=== PATIENT | female | born 1980 | race Two or more races ===

== ENCOUNTER 2017-11-16 07:59 | Outpatient (CLI) | payer BC ==
[2017-11-16] MEDS ORDERED: ISOVUE-370 76%-LOCM 1 ML ONE (12:51)
== END 2017-11-16 08:00 | disposition home or self-care (01) ==
LOC: BICCT 07:59
PROVIDERS: ATTEND Family Medicine
DX: R59.0 Localized enlarged lymph nodes (principal)
CPT/HCPCS: 71260

== ENCOUNTER 2021-06-05 09:50 | Outpatient (CLI) | payer BC | END 2021-06-05 09:51 | disposition home or self-care (01) | LOC: BICRAD 09:50 | PROVIDERS: ATTEND Family Medicine | DX: M50.122 Cervical disc disorder at C5-C6 level with radiculopathy (principal); R29.898 Other symptoms and signs involving the musculoskeletal system; M79.601 Pain in right arm | CPT/HCPCS: 72040 ==

== ENCOUNTER 2021-06-09 07:43 | Outpatient (CLI) | payer BC | END 2021-06-09 07:44 | disposition home or self-care (01) | LOC: SCSMRI 07:43 | PROVIDERS: ATTEND Family Medicine | DX: M50.122 Cervical disc disorder at C5-C6 level with radiculopathy (principal); M79.601 Pain in right arm; R29.898 Other symptoms and signs involving the musculoskeletal system; M47.22 Other spondylosis with radiculopathy, cervical region | CPT/HCPCS: 72141 ==

== ENCOUNTER 2022-07-15 08:55 | Outpatient (CLI) | payer BC | END 2022-07-15 08:56 | disposition home or self-care (01) | LOC: BICMAMMO 08:55 | PROVIDERS: ATTEND Family Medicine | DX: Z12.31 Encounter for screening mammogram for malignant neoplasm of breast (principal); Z80.3 Family history of malignant neoplasm of breast | CPT/HCPCS: 77063; 77067 ==